=== PATIENT | male | born 1990 | race Caucasian/White ===

== ENCOUNTER 2018-12-07 22:30 | Emergency (ER) | payer MEDICAID, OTHER ==
[~2018-12-07] VITALS: Wt 95.6 kg
[2018-12-07 22:38] VITALS: BP 122/81; PULSE 118; RESP 19
[2018-12-07] MEDS ORDERED: KETOROLAC 60 MG INJ IM STA (23:11)
--- NOTE | 2018-12-07 23:17 | ERD ---
ER Documentation Chief Complaint Chief Complaint bib self, cc: right foot inflamation / swelling HPI 28-year-old male presents due to pain and swelling on his right foot. He denies any injury. States that it is also making it difficult for him to walk. Denies any allergies. Denies history of gout. Denies fevers, numbness, tingling. ROS All systems reviewed and are negative except as per history of present illness. Allergies Allergies: Coded Allergies: No Known Drug Allergies (Verified Allergy, Unknown, 01/06/15) PMhx/Soc Hx Alcohol Use: No Hx Substance Use: No FmHx Family History: No diabetes, No coronary disease, No other Physical Exam Vitals Vital Signs Date Temp Pulse Resp B/P (MAP) Pulse Ox O2 O2 Flow FiO2 Time Delivery Rate 12/07/18 98.9 118 19 122/81 99 22:38 (95) Physical Exam Const: No acute distress Head: Atraumatic Eyes: Normal Conjunctiva ENT: Normal External Ears, Nose and Mouth. Neck: Full range of motion. No meningismus. Resp: Clear to auscultation bilaterally Cardio: Regular rate and rhythm, no murmurs Abd: Soft, non tender, non distended. Normal bowel sounds Skin: No petechiae or rashes Back: No midline or flank tenderness Ext: Right foot has some mild erythema without any edema, bony deformity, ecchymosis, or other lesions noted. Overlying skin is intact. There is some tenderness to palpation over the right lateral malleolus. Neur: Awake and alert Psych: Normal Mood and Affect Results 24 hrs Current Medications Medications Dose Sig/Ajay Start Time Status Last (Trade) Ordered Route PRN Stop Time Admin Dose Reason Admin Ketorolac 60 mg ONCE STAT 12/07/18 DC 12/07/18 Tromethamine IM 23:11 12/07/18 23:31 (Toradol) 23:12 Procedures/MDM DIAGNOSTIC IMAGING REPORT Patient: GEOFF MORENO : 1990 Age: 28 Sex: M MR #: [id number] DOS: 12/07/18 2312 Ordering MD: JOSH VILLANUEVA Location: [facility] Room/Bed: PROCEDURE: Right ankle. CLINICAL INDICATION: Pain. TECHNIQUE: Three views including AP, lateral and oblique views were performed. COMPARISON: None. FINDINGS: There are fractures of the distal fibular tip. There is no dislocation. The ankle mortise is within normal limits. Bone mineralization is within normal limits. There is no radiopaque foreign body or abnormal calcification. IMPRESSION: Fractures of the distal fibular tip. .Naveen York MD, MD Date Time Electronically viewed and signed by .Nvaeen York MD, MD on 12/08/2018 00:47 .T/ CC: JOSH VILLANUEVA [id number] DIAGNOSTIC IMAGING REPORT Patient: GEOFF MORENO : 1990 Age: 28 Sex: M MR #: [id number] DOS: 12/07/18 2312 Ordering MD: JOSH VILLANUEVA Location: [facility] Room/Bed: PROCEDURE: DX Foot CLINICAL INDICATION: 28-year-old male. Right foot pain and swelling. TECHNIQUE: Three views. COMPARISON: None FINDINGS: Osseous structures: Normal bone mineralization. No acute fracture. No lytic or blastic changes. Calcaneal osteophyte/s absent. Joint space: Joint spaces maintained. Soft tissues: No soft tissue swelling. No radiopaque foreign body or soft tissue gas. IMPRESSION: No acute changes. RPTAT: [facility] Physician Diego Date Time Electronically viewed and signed by Physician Diego on 12/08/2018 00:48 RS/ CC: JOSH VILLANUEVA [id number] 28-year-old male presents due to pain and swelling on his right foot. He denies any injury. States that it is also making it difficult for him to walk. Denies any allergies. Denies history of gout. Denies fevers, numbness, tingling. Foot and ankle x-rays were ordered. Ankle x-ray showed fracture of the distal fibula. Patient given splint and crutches. Splint Assessment: Neurovascularly intact post splint placement with good fit. Patient given IM Toradol in the ER discharged with prescription for ibuprofen and short course of [place]. Patient told to follow-up with orthopedist. I have low suspicion for neurovascular compromise, compartment syndrome, osteomyelitis, septic joint, or other emergent condition. Patient discharged with strict ER precautions. Patient advised to follow up with PMD. All questions answered at discharge. Departure Diagnosis: Primary Impression: Foot pain Laterality: right Qualified Codes: M79.671 - Pain in right foot Additional Impression: Fibula fracture Encounter type: initial encounter Fibula location: distal Fracture type: closed Fracture morphology: unspecified fracture morphology Laterality: right Qualified Codes: S82.831A - Other fracture of upper and lower end of right fibula, initial encounter for closed fracture Condition: Stable KAYJOSH Dec 07, 2018 23:17
[2018-12-08] MEDS ORDERED: IBUP-1542 PO (01:20)
[2018-12-08] MEDS ORDERED: HYDR-4011 PO (01:20)
== END 2018-12-08 03:47 | disposition home or self-care (01) ==
LOC: FTE 22:30
DX: S82.831A Other fracture of upper and lower end of right fibula, initial encounter for closed fracture (principal); X58.XXXA Exposure to other specified factors, initial encounter; Y92.9 Unspecified place or not applicable
CPT/HCPCS: 73610; 73630; 96372; J1885; Z7502